=== PATIENT | female | born 1980 | race African-American/Black ===

== ENCOUNTER 2017-12-01 19:48 | Emergency (ER) | payer OTHER ==
[~2017-12-01] VITALS: Ht 165.1 cm; Wt 77.1 kg
[2017-12-01] MEDS ORDERED: IBUPROFEN 600600 M1 PO ×2 (20:17→20:59)
[2017-12-01] MEDS ORDERED: NORCO 5-325 TA1 EACH PO ×2 (20:17→20:59)
[2017-12-01 21:02] VITALS: BP 118/85
== END 2017-12-01 21:03 | disposition home or self-care (01) ==
LOC: ER 19:48
DX: M25.562 Pain in left knee (principal); F17.210 Nicotine dependence, cigarettes, uncomplicated